=== PATIENT | male | born 1955 | race Caucasian/White ===

== ENCOUNTER → 2017-11-25 | Day surgery (SDC) | payer OTHER, MEDICAID ==
[~2017-11-25] MED LIST: PROPOFOL 40 ML
== END | disposition home or self-care (01) ==
LOC: GIL 09:23
DX: R19.4 Change in bowel habit (principal); Z53.8 Procedure and treatment not carried out for other reasons; R13.10 Dysphagia, unspecified; E11.9 Type 2 diabetes mellitus without complications
CPT/HCPCS: Z7610